=== PATIENT | female | born 1980 | race American Indian/Alaskan Native ===

== ENCOUNTER 2017-02-28 22:00 | Emergency (ER) | payer OTHER ==
[2017-03-01 00:01] VITALS: BP 112/54
== END 2017-03-01 02:15 | disposition left against medical advice (07) ==
LOC: EDSEX → ED 22:00
DX: M79.645 Pain in left finger(s) (principal); Z53.21 Procedure and treatment not carried out due to patient leaving prior to being seen by health care provider